=== PATIENT | female | born 1995 | race Caucasian/White ===

== ENCOUNTER → 2020-12-05 11:43 | Outpatient (CLI) | payer OTHER, SELFPAY ==
[2020-12-05 13:35] LABS: COVID19 -Nasal RAPID Negative (Negative)
== END ==
PROVIDERS: Visit Provider Student in an Organized Health Care Education/Training Program
DX: Z20.822 Contact with and (suspected) exposure to COVID-19 (principal)
CPT/HCPCS: 87635

== ENCOUNTER 2020-12-07 06:25 | Day surgery (SDC) | payer OTHER, SELFPAY ==
[2020-12-07] VITALS (8 sets, daily range): BP systolic 108–121; BP diastolic 62–72; PULSE 81–89; RESP 10–14; TEMP 36.5–36.9; O2SAT 96–100; BMI 25.8
--- NOTE | 2020-12-07 | PATH_ITS ---
[facility] Accession Number: [id number] . 01 Material submitted: . ankle - PERONEAL SYNOVITIS RIGHT ANKLE . 01 Clinical history: . RIGHT ANKLE/TENDON REPAIR . 02 Diagnosis: Right Ankle Peroneal Synovium, Biopsy: Synovium with reactive hyperplasia, lymphohistiocytic infiltrate and fibrinoid necrosis, consistent with chronic synovitis. Negative for giant cells or calcification. Negative for malignancy. MRV 12/13/2020 1630 Local . 02 Electronically signed: . Dori Cotter MD, Pathologist NPI- [id number] . 01 Gross description: . The specimen is received in formalin, labeled peroneal synovitis right ankle and consists of a 1.6 x 0.8 x 0.3 cm rojas-white fragment of soft tissue and a 3.0 x 1.2 x 0.9 cm rojas-yellow fragment of adipose tissue. The margins are inked blue. The specimen is serially sectioned and entirely submitted in cassettes A1-A3. ([id number]) /MRV 12/11/2020 1142 Local . 02 Pathologist provided ICD-10: M25.371 . 02 CPT . 004133 Performed at: 01 [facility] [address], [place], [place] [id number] MD Jake Malloy MD Phone: [phone] Performed at: 02 [facility] [address] [place], [place] [id number] MD Dori Cotter MD Phone: [phone]
--- NOTE | 2020-12-07 07:23 | P.HP_ITS ---
History of Present Illness History of Present Illness Date Patient Seen: 12/07/20 Time Patient Seen: 07:23 Chief complaint: RIGHT ANKLE/TENDON REPAIR Narrative: A 5-year-old female with right ankle pain injured in January 2020 when she was hiking and inverted her ankle. Failed conservative treatment found to have peroneus brevis tendon tear as well as ankle instability presents for tendon repair and lateral ligament reconstruction. Denies fevers chills nausea vomiting denies numbness or tingling. Patient History Medical History Depression Surgical History H/O wisdom tooth extraction Family & Social History Social History: Works part-time Tobacco & Substance use: none Meds Home Medications and Allergies Home Medications Medication Instructions Recorded Confirmed Type levonorgestrel [Mirena] mcg INTRAUTERINE 12/07/20 History loratadine [Claritin] 10 mg PO DAILY 12/07/20 12/07/20 History multivitamin 1 tab PO DAILY 12/07/20 12/07/20 History paroxetine HCl [Paxil] 20 mg PO DAILY 12/07/20 12/07/20 History Allergies Allergy/AdvReac Type Severity Reaction Status Date / Time amoxicillin Allergy Severe Anaphylaxis Verified 12/07/20 07:26 Penicillins Allergy Severe Anaphylaxis Verified 12/07/20 07:26 Review of Systems Review of Systems ROS: Yes All systems reviewed with the patient and are negative except as otherwise documented Exam Narrative Exam Narrative: alert oriented female no acute distress lungs clear to auscultation bilaterally. Pulse regular rate and rhythm. Right ankle demonstrates pain over the peroneal tendons. A very mild ankle varus corrects with Hernandez block. Positive anterior drawer. Calf is soft. 5/5 dorsiflexion plantar flexion and inversion. There is pain with eversion. Dorsalis pedis pulses palpable. Sensation grossly intact to light touch superfi cial peroneal deep peroneal sural and saphenous nerve distributions Objective Imaging MRI ankle: My impression: MRI right ankle demonstrates peroneus brevis tear and thinning of the ATFL consistent with prior injury. Assessment & Plan Assessment & Plan narrative: Right ankle instability and tear of peroneal tendon, right the patient has ankle instability and the pain and a tear along the peroneus brevis tendon that has been resistant to conservative treatment. She has a very subtle varus that corrects with Hernandez block. She does not really have any cavus. I feel like her deformity is subtle enough that it is appropriate to start with peroneal tendon repair versus tenodesis and Brostrom and will also have her use a lateral heel wedge, block style orthotic. If she fails this then would do a calcaneal osteotomy. She understands and agrees the plan. She is to do surgery since she can future to maximize help at home with her mother visiting. She will be nonweightbearing 4 weeks postop and then start physical therapy. She has a Mirena IUD shoulder aspirin for DVT prophylaxis. No history of blood clots. Does have a history of allergy to amoxicillin out with anaphylaxis will do clindamycin as a preoperative antibiotic. She will get a prescription for Hibiclens and a knee scooter and crutches. She has failed 1 year of conservative treatment. Risks benefits alternatives were discussed with the patient detail including but not limited to infection nonunion malunion persistent pain wound healing problems amputation DVT pulmonary embolism stroke paralysis depth and symptomatic hardware. She has elected to proceed with surgery. Consent was signed in the office. COVID-19 COVID-19 status: Negative Time Spent With Patient Time with patient: less than 15 minutes
[2020-12-07] MEDS: LACTATED RINGERS 1,000 ML 42 ML IV (07:36)
[2020-12-07] MEDS: CLINDAMYCIN 900 MG/50 ML PIGGYBACK 50 MG IV (08:00)
--- NOTE | 2020-12-07 08:04 | SUR.PREOP ---
[id number] Continuous VS, personnel monitor, and O2 at 2LNP for nerve block by Dr. Stokes. Patient awake and stable, relaxed after IV sedation was given. Patient tolerated the procedure well. Stable.
[2020-12-07] MEDS: ACETAMINOPHEN IV 1,000 MG/100 ML VIAL 400 MG IV (08:10)
--- NOTE | 2020-12-07 08:26 | SUR.OPER ---
Supine on padded OR bed, head on pillow, arms secured on padded arm boards at <90 degrees abduction, legs uncrossed, bump under right hip, right left prepped and draped in sterile field, safety belt at abdomen, tape over blanket over left lower leg.
--- NOTE | 2020-12-07 08:36 | PM.PROC.1 ---
Procedures Date/Time Date of procedure: 12/07/20 Time of procedure: 07:50 Nerve Block Time out performed: Yes Local anesthetic used: other (5mL 2% Lidocaine, 15mL 0.5% Ropivacaine) Location of anesthetic used: lateral popliteal Amount of anesthesia used (mL): 20 Nerve blocks: other (sciatic nerve) Procedure successful: Yes Patient tolerated procedure: well Complications: none Additional comments: RIGHT Ultrasound guided lateral popliteal sciatic nerve block for post operative pain management, as discussed with surgeon. Risks, benefits discussed with patient. Consent verified. Site marked by surgeon. Time out performed. Standard ASA monitors applied, NC O2, 2mg versed. Pt supine. Chloroprep. Sciatic nerve identified proximal to popliteal fossa, at bifurcation. Lidocaine local skin wheal. 100mm x 21g Pajunk needle advanced with in-plane US guidance to nerve. Negative aspiration. 5mL 2% lidocaine and 15mL 0.5% ropivacaine injected with intermittent negative aspiration. Good LA spread noted on US. No pain, no paresthesias. VSS. Tolerated well.
[2020-12-07] MEDS: BUPIVACAINE 0.25% W/ EPI (PF) 10 ML VIAL 20 ML INJ (08:37)
--- NOTE | 2020-12-07 09:50 | P.OP_ITS ---
Operative Date/Time/Diagnoses Date of procedure: 12/07/20 Time of procedure: 08:20 Pre-op diagnosis: Peroneus brevis tendon right, right ankle instability, right peroneal tenosynovitis Post-op diagnosis: same Procedure & Clinicians Procedure: 1. Right ankle Brostrom lateral ligament reconstruction, right CPT code 91706 2. Right ankle repair peroneal tendon, peroneus brevis right CPT code 35604 3. Right ankle extensive peroneal tendon debridement and resection of a tenosynovitis Same procedure as scheduled: Yes Indications: Patient is a 25-year-old female with 1 year history of posterolateral ankle pain after inversion injury. She is found to have persistent pain a extensive peroneus brevis tendon tear and tenosynovitis as well as increased anterior drawer on the right compared to the left. She also has a subtle varus that corrects well with Hernandez block. Options for surgical treatment were discussed with the patient. Decision was made for debridement repair of peroneal tendons and the lateral ligament reconstruction. Discussed for recurrence symptoms would possibly require calcaneal osteotomy in the future but she would like to avoid this currently.The risks and benefits of the procedure have been discussed with the patient even opportunity to ask questions. The risks of surgery include but are not limited to infection, malunion, nonunion, persistence of pain, damage to nerves and blood vessels, posttraumatic arthritis, DVT, PE, cardiopulmonary complications and . The patient expressed a thorough understanding of the risks and benefits of surgery and has elected to proceed. Consent was signed in the office today. Surgeon: Indu Peña Click Yes if Unassisted: Yes Anesthesia Type: General, Peripheral nerve block and Local Operative Notes Findings: Extensive peroneal tenosynovitis with the egress of fluid with sheath opening. Longitudinal peroneus brevis tendon tear at the level of the distal fibula. Peroneus longus tendon intact with mild synovitis. There is also a low-lying peroneus brevis muscle belly into the groove severe tenosynovitis very thickened ready the synovium. This is quite proliferative and a sample was sent for pathology. Additionally there is a small nodule at the site of the peroneal brevis tear that was excised and sent for pathology. Approximately 50% of the peroneus Frohse was compromised this was excised and debrided/repaired to retain the viable portion of the peroneus brevis. On-table exam under anesthesia prior to draping confirmed increased anterior drawer on the right compared to the left. On visual inspection intraoperatively the ATFL was extremely thinned at its fibular insertion. And this was repaired in the standard Brostrom fashion restoring a stable anterior drawer Closure Type: primary Specimen(s): other (Peroneal Tenosynovium for pathology) Prosthetic devices, grafts, tissues, transplants, or devices: Two 3.5 x 14.5 SutureTak anchors, Arthrex Estimated Blood Loss (mL): 10 Blood products transfused: none Tourniquet time (min): 53 Procedure in detail: Patient was seen in the preoperative area the site of surgery was marked informed consent confirmed. Patient was taken to the block room by the anesthesia team and a block was placed for postoperative pain control. Patient was then taken to the operating room positioned supine position. General anesthetic was administered. All bony prominences were well padded. An SCD was placed on the contralateral lower extremity. A well-padded thigh tourniquet was placed. Right lower extremities prepped and draped in s tandard sterile fashion. A formal time-out procedure was performed confirming the patient's side and site of surgery administration of appropriate preoperative antibiotics. This patient history of a penicillin allergy and clindamycin was used. Attention was turned to the right lower extremity the planned incisions were marked out just posterior to the fibula along the peroneal sheath and then over the course of the ATFL. Tourniquet was used for X and elevated to 250 mm of mercury. Incision was made down through the skin and subcutaneous tissues. Peroneal sheath was located proximally this was divided the a good cuff for repair all way down around the edge of the distal fibula following the peroneal tendons distally. On penetration of the peroneal sheath there was an immediate egress of a yellow the synovitis from the peroneal sheath. The peroneal tendons were inspected there peroneus longus was intact. The peroneus brevis had a large longitudinal tear in the middle of the tendon at the level of the fibula as as a hard nodule just distal to the fibula. Peroneal tendon repair. Peroneus brevis nodule tendinosis was excised. The torn 50% of the tendon was excised and the edges smoothed, facilitating a smooth repair. Low-lying brevis was excised to decrease the crowding within the groove. A extensive tenosynovectomy of both the peroneus longus and the peroneus brevis was completed there was significant adhesive tenosynovitis with a ready rust and yellow color. No other masses or purulence. Once this was completed attention was turned to the Brostrom repair: Dissection was taken over the location of the ATFL this was extremely thinned and attenuated. A cuff of tissue off the distal fibula was resected and the ATFL it was retracted distally. The extensor retinaculum was also and prepared for reinforcement. The arthrotomy allowed visualization of the lateral talar dome no cartilage lesions were visualized. The locations of the ATFL footprint were marked out on the distal fibula with the Bovie and the bone was prepared with a rongeur. Drill for the ArthArrogene SutureTak was used and then 2 of the 3.5 suture tacks were placed in the standard fashion. The sutures were advanced through the ATFL in a horizontal mattress fashion and tied with the foot in dorsiflexion and eversion. Once this was completed this extensor retinaculum was repaired over the top to the fibular cuff reinforcing the repair with the Guhl modification. This provided an excellent strength and stability and restored a rock solid anterior drawer. Once this was completed the wounds were correct copiously irrigated. The peroneal tendon sheath was repaired with 2-0 PDS. The tendons were noted to glide smoothly in the sheath. Subcutaneous tissues were closed with 2-0 PDS and 4-0 Monocryl. The skin was closed with 3-0 nylon suture. Tourniquet was released prior to dressing placement toes pinked up well. A 10 cc of a local anesthetic was used for additional anesthesia. Dressings were placed with Xeroform gauze Webril and a stirrup splint. The patient was awoken from anesthesia and taken to recovery room in good condition. There no immediate complications from this procedure. All counts were correct Complications: none Post-operative Condition: stable Disposition: PACU Plan for aftercare: Nonweightbearing right lower extremity x4 weeks and progressive weight-bearing with physical therapy following a lateral ankle ligament peroneal protocol. Aspirin for DVT prophylaxis.
[2020-12-07] MEDS: OXYCODONE IR 5 MG TABLET PO (10:31)
== END 2020-12-07 11:18 | disposition home or self-care (01) ==
PROVIDERS: PCP Nurse Practitioner Family; Referring Provider Nurse Practitioner Family; Visit Provider Orthopaedic Surgery Foot and Ankle Surgery
PROC: (CPT 27698; principal; 2020-12-07 07:45)
DX: M25.371 Other instability, right ankle (principal); S86.311A Strain of muscle(s) and tendon(s) of peroneal muscle group at lower leg level, right leg, initial encounter; M65.871 Other synovitis and tenosynovitis, right ankle and foot; Y93.01 Activity, walking, marching and hiking; X50.1XXA Overexertion from prolonged static or awkward postures, initial encounter; F41.9 Anxiety disorder, unspecified; F32.9 Major depressive disorder, single episode, unspecified
CPT/HCPCS: 27698; 27675; 64450; J0131; J1100; J2405; J2704; J3010

== ENCOUNTER → 2021-07-09 08:43 | Outpatient (CLI) | payer OTHER, SELFPAY ==
--- NOTE | 2021-07-09 | DI.MRI.S_ITS ---
PROCEDURE: MR ANKLE RT WO CON INDICATIONS: Other instability, right ankle TECHNIQUE: Noncontrast sagittal T1 spin echo and T2 fast spin echo with fat saturation, axial proton density fast spin echo and T2 fast spin echo with fat saturation, coronal T1 spin echo and T2 fast spin echo with fat saturation through the ankle/hindfoot. COMPARISON: None. FINDINGS: Image quality: Excellent. Bones and joints: No evidence of fracture. Minimal T2 hyperintense signal is seen in the lateral malleolus, which may simply represent susceptibility artifact from prior intervention. No osteochondral injuries of the talar dome. Small tibiotalar joint effusion. Medial structures: The posterior tibialis, flexor digitorum longus, and flexor hallucis longus tendons are intact. The posterior tibial neurovascular bundle appears normal within the tarsal tunnel, without extrinsic mass effect. The deltoid ligament appears normal. The spring ligament appears intact. Lateral structures: The anterior talofibular and calcaneofibular ligaments appear intact. T2 hyperintense signal within the posterior talofibular ligament, compatible with partial tear. More superiorly, the anterior and posterior tibiofibular ligaments appear intact. The tibiofibular syndesmosis is normal in width at 2 mm or less. Thickening of the peroneal longus and brevis tendons, compatible with tendinopathy. T2 hyperintense signal at the distal peroneal longus tendon at the attachment, compatible with partial tear. In addition, T2 hyperintense signal and thinning of the peroneal brevis tendon at the tubercle, concerning for partial tear. The sinus tarsi demonstrates normal fatty signal, without edema, fibrosis, or cyst formation. The calcaneonavicular and calcaneocuboid components of the bifurcate ligament appear intact. The dorsal calcaneocuboid ligament appears intact. Anterior structures: The tibialis anterior, extensor hallucis longus, and extensor digitorum longus tendons appear intact. The dorsal talonavicular ligament appears intact. Posterior and plantar structures: Achilles tendon is intact. Medial and lateral bands of the plantar fascia are of normal thickness. No abductor digiti quinti muscle atrophy to suggest Schwartz neuropathy. IMPRESSION: 1. Small tibiotalar joint effusion. 2. In partial tear of the posterior talofibular ligament. 3. Thickening of the peroneal tendons as detailed above, compatible with tendinopathy and partial tear. Dictated by: Darrell May M.D. on 07/09/2021 at 9:54 Approved by: Darrell May M.D. on 07/09/2021 at 10:10
== END ==
PROVIDERS: PCP Nurse Practitioner Family; Referring Provider Orthopaedic Surgery Foot and Ankle Surgery; Visit Provider Orthopaedic Surgery Foot and Ankle Surgery
DX: M25.371 Other instability, right ankle (principal); S93.491A Sprain of other ligament of right ankle, initial encounter; M25.471 Effusion, right ankle
CPT/HCPCS: 73721

== ENCOUNTER → 2023-06-07 15:28 | Outpatient (CLI) | payer OTHER, SELFPAY | PROVIDERS: PCP Nurse Practitioner Family; Visit Provider Physician Assistant | DX: J02.9 Acute pharyngitis, unspecified (principal) | CPT/HCPCS: 87070 ==

== ENCOUNTER → 2024-10-04 09:18 | Outpatient (CLI) | payer OTHER, SELFPAY ==
--- NOTE | 2024-10-04 09:19 | DI.US.S_ITS ---
LIMITED ULTRASOUND OF LEFT BREAST AND AXILLA: 10/04/2024 CLINICAL: Palpable left breast lump. No prior exams were available for comparison. Real-time ultrasound of the left breast 12 o'clock, and axilla regions was performed. Hewitt scale images of the real-time examination were reviewed. No significant abnormalities were seen sonographically in the left breast. IMPRESSION: NEGATIVE There is no sonographic evidence of malignancy. There is no abnormality seen in the left breast to correspond with the area of clinical concern at 12 o'clock, however, clinical correlation and clinical followup are recommended. If new or worsening symptoms are noted, diagnostic mammogram and repeat ultrasound are suggested. Screening mammography recommended at age 40 (or sooner if patient has risk factors or family history, in discussion with provider). This exam was interpreted at Station ID: [id number]. Electronically Signed By: Mj Zhao M.D. lc/:10/04/2024 10:10:45 letter sent: Clinical Evaluation ACR BI-RADS Category 1: Negative
== END ==
PROVIDERS: PCP Student in an Organized Health Care Education/Training Program; Referring Provider Student in an Organized Health Care Education/Training Program; Visit Provider Student in an Organized Health Care Education/Training Program
DX: N63.22 Unspecified lump in the left breast, upper inner quadrant (principal)
CPT/HCPCS: 76642

== ENCOUNTER → 2024-11-09 17:48 | Outpatient (CLI) | payer OTHER, SELFPAY | PROVIDERS: PCP Student in an Organized Health Care Education/Training Program; Visit Provider Nurse Practitioner Family | DX: J02.9 Acute pharyngitis, unspecified (principal) | CPT/HCPCS: 87070 ==

== ENCOUNTER 2025-05-28 09:22 | Emergency (ER) | payer OTHER, SELFPAY ==
--- NOTE | 2025-05-28 09:27 | ED.GENADULT ---
HPI - General Adult General Chief complaint: Fall Stated complaint: Fell yesterday: hematoma buttocks, swollen Time Seen by Provider: 05/28/25 09:26 History of Present Illness HPI narrative: Patient is a 30-year-old female with a past medical history of anxiety, panic attacks, depression, comes into the ED from home for evaluation of hematoma to the buttock region, states that she had a mechanical trip and fall yesterday it is now swollen. She states that she was holding her child going down the stairs and fell landing on her buttock. She states that it is all to the right side. She denies any numbness weakness tingling to the lower extremity. However she states that she saw a very large hematoma therefore wanted it to be evaluated. She is otherwise not complaining of any other symptoms. No other traumatic injuries not on any blood thinners she was able to stand bear weight ambulate unassisted here in the emergency department. Related Data Home Medications ?Medication ?Instructions ?Recorded ?Confirmed loratadine 10 mg tablet (Claritin) 10 mg PO DAILY 12/07/20 12/13/24 multivitamin 1 tab PO DAILY 12/07/20 12/13/24 Previous Rx's ?Medication ?Instructions ?Recorded fluconazole 150 mg tablet 150 mg PO Q3D 2 doses #2 tabs 12/05/24 lisdexamfetamine 20 mg capsule 20 mg PO DAILY #30 caps 05/04/25 lisdexamfetamine 20 mg capsule 20 mg PO DAILY #30 caps 05/04/25 lisdexamfetamine 20 mg capsule 20 mg PO DAILY #30 caps 05/04/25 paroxetine HCl 10 mg tablet (Paxil) 10 mg PO DAILY #90 tabs 05/04/25 propranolol 10 mg tablet 10 mg PO BID #60 tabs 05/04/25 Allergies Allergy/AdvReac Type Severity Reaction Status Date / Time amoxicillin Allergy Severe Anaphylaxis Verified 05/28/25 09:54 Penicillins Allergy Severe Anaphylaxis Verified 05/28/25 09:54 bupropion (From Wellbutrin) Allergy Unknown Verified 05/28/25 09:54 Review of Systems Review of Systems Narrative: General: Denies fever, chills, weight loss HEENT: Denies headache, eye drainage, eye irritation, head trauma, sore throat, voice change Cardiovascular: Denies any chest pain, palpitations, tachycardia Respiratory: Denies any shortness of breath, cough, wheeze, stridor GI/: Denies any abdominal pain, nausea, vomiting, diarrhea, bright red blood per rectum, melanotic stools, urinary frequency, urinary retention, dysuria, hematuria MSK: Denies any joint pain, muscle pains, swelling Skin: Hematoma noted to the right buttock Neuro: Denies any headache, lightheadedness, dizziness, fainting, weakness Psych: Denies SI/HI Patient History Medical History (Updated 05/28/25 @ 09:34 by Rod Hook DO) Depression Surgical History H/O wisdom tooth extraction Social History household members: spouse and children Smoking Status: Never smoker alcohol intake: never Exam Narrative Exam Narrative: General: Cooperative, well-developed, not in acute distress HEENT: Normocephalic, atraumatic, PERRLA, normal sclera, eyelids normal Neck: Active full range of motion, atraumatic Chest: Normal to inspection, negative crepitus, no overlying erythema ecchymosis Respiratory: Normal respiratory effort, not in acute respiratory distress, clear to auscultation bilaterally negative cough, wheeze, tachypnea, rhonchi, rales Cardiology: Regular rate rhythm negative gallop, murmur, rubs GI/: No tenderness to palpation, soft, non rigid, normal to inspection, exam deferred MSK: Full active range of motion in all 4 extremities, atraumatic, no tenderness to palpation of any bony prominences patient was able to stand bear weight ambulate without assistance here in the emergency department. Skin: Patient with a very large hematoma noted to the right buttock, but no overlying erythema rash laceration or abrasion Neuro: Alert awake oriented x3, moves all 4 extremities spontaneously, cranial nerves intact, able to answer all questions appropriately follows commands appropriately Psych: Cooperative, negative suicidal or homicidal ideations Initial Vital Signs Initial Vital Signs: Vital Signs Temperature 98.3 F 05/28/25 09:30 Pulse Rate 87 05/28/25 09:30 Respiratory Rate 16 05/28/25 09:30 Blood Pressure 136/60 05/28/25 09:30 Pulse Oximetry 98 05/28/25 09:30 Oxygen Delivery Method Room Air 05/28/25 09:30 Course Orders Ordered: ED Orders 05/28/25 09:31 XR pelvis 1-2V Stat Vital Signs Vital signs: Vital Signs - 8 hr 05/28/25 09:30 Temperature 98.3 F Pulse Rate 87 Respiratory Rate 16 Blood Pressure 136/60 Pulse Oximetry 98 Oxygen Delivery Method Room Air Medical Decision Making MDM Narrative Medical decision making narrative: 30-year-old female with a past medical history of anxiety, depression, comes into the ED from home for evaluation of hematoma/pain to the right buttock, patient states that yesterday she was carrying her daughter down the stairs she slipped and landed on her buttock and went down a flight of stairs. She denies head strike denies LOC was able to stand bear weight ambulate immediately after as well as here in the emergency department. However she states that she has a very large bruise her right buttock and wanted to be evaluated. On my exam patient with compartments soft, she is neurovascularly intact to her lower extremities. She has no tenderness to palpation of any bony prominences. Patient states that her last menstrual cycle was 11 days ago states that she is not worried about is okay with getting the x-ray of her pelvis to rule out bony abnormalities without negative test. Imaging negative for any acute fractures, no signs of compartment syndrome. Patient was instructed to use ice and [id number] pain medication for symptoms instructed to follow up with the primary care in outpatient setting she verbalized understanding of this and agrees to being discharged home with outpatient follow up Discharge Plan Departure Patient Disposition: Home Clinical Impression: Hematoma of right buttock Instructions: DI for Hematoma (Bruise) Activity Restrictions/Additional Instructions: You may use ice for the next 2 days to help with any aches and pains Please read the discharge instructions sheet carefully and bring all papers to all doctor follow-up visits, as it may contain information that your doctor may want to see. Disease processes change and evolve, if your symptoms worsen or if you develop any new symptoms that are concerning to you please return for evaluation. Your evaluation today does not show any evidence of any life-threatening/serious illnesses requiring admission to the hospital or surgery. Please follow-up with your doctor for re-evaluation in approximately 1 day. Seek immediate medical attention for any worrisome symptoms. *If you do not have a primary care provider please contact the [facility] Resource line at [phone]. They will ask some questions about your medical history and help get you set up with a doctor in the community. Prescriptions: No Action lisdexamfetamine 20 mg capsule 20 mg PO DAILY Qty: 30 0RF paroxetine HCl [Paxil] 10 mg tablet 10 mg PO DAILY Qty: 90 3RF lisdexamfetamine 20 mg capsule 20 mg PO DAILY Qty: 30 0RF lisdexamfetamine 20 mg capsule 20 mg PO DAILY Qty: 30 0RF propranolol 10 mg tablet 10 mg PO BID Qty: 60 3RF fluconazole 150 mg tablet 150 mg PO Q3D Qty: 2 0RF Rx Instructions: may repeat second dose 72 hrs after first dose if symptoms persist multivitamin Tablet 1 tab PO DAILY loratadine [Claritin] 10 mg Tablet 10 mg PO DAILY Referrals: Jocelyn Luevano MD [Primary Care Provider, Family Practice] Stand Alone Forms: Patient Portal/API
[2025-05-28 09:30] VITALS: BP 136/60; PULSE 87; RESP 16; TEMP 36.8; O2SAT 98; BMI 25.8
--- NOTE | 2025-05-28 09:31 | DI.RAD.S_ITS ---
PROCEDURE: XR PELVIS 1-2V INDICATIONS: s/p fall , pain to rt buttock TECHNIQUE: 1 view(s) of the pelvis acquired. COMPARISON: None. FINDINGS: Bones: No fractures or dislocations. No suspicious bony lesions. Soft tissues: Visualized bowel gas pattern is normal. No suspicious soft tissue calcifications. IMPRESSION: No acute bony abnormality. Dictated by: Nikki Layton M.D. on 05/28/2025 at 9:10 Approved by: Nikki Layton M.D. on 05/28/2025 at 9:11
== END 2025-05-28 10:29 | disposition home or self-care (01) ==
PROVIDERS: Emergency Provider Student in an Organized Health Care Education/Training Program; PCP Student in an Organized Health Care Education/Training Program
DX: S30.0XXA Contusion of lower back and pelvis, initial encounter (principal); W10.9XXA Fall (on) (from) unspecified stairs and steps, initial encounter
CPT/HCPCS: 72170; 99281; 99283

== ENCOUNTER → 2025-09-02 15:08 | Outpatient (CLI) | payer OTHER, SELFPAY ==
[2025-09-02 16:36] LABS: COVID-19 CEPHEID 4-PLEX PCR Negative (Negative); Influenza A - CEPHEID Flu A NEGATIVE (NEGATIVE); Influenza B - CEPHEID Flu B NEGATIVE (NEGATIVE)
== END ==
PROVIDERS: PCP Student in an Organized Health Care Education/Training Program; Visit Provider Chiropractor
DX: J02.9 Acute pharyngitis, unspecified (principal); R05.1 Acute cough
CPT/HCPCS: 87070; 87147; 87637